=== PATIENT | female | born 1960 | race Caucasian/White ===

== ENCOUNTER → 2021-11-28 15:38 | Outpatient (REF) | payer MEDICAID, SELFPAY ==
--- NOTE | 2021-11-28 15:46 | CA_ITS ---
Transthoracic Echocardiogram Patient (Last, First, Middle): Keely Morin, Gender: Female Date of : 1960 Age: 61 Procedure Date: 11/28/2021 Procedure Type: Transthoracic Echocardiogram Location: [place] Height: 165.1 cm Weight: 68.04 kg BSA: 1.75 m2 Heart Rate: bpm BP: 118 / 70 mmHg Logistics Associate: Referring MD: Iris Kumar MD Symptoms: RAIN R06.00 Study Quality: Good ECG Rhythm: Sinus Conclusions: - The left ventricular systolic function is normal. The calculated ejection fraction is 68% by biplane method. - No obvious valvular pathology seen on this study. Findings Left Ventricle Normal left ventricular cavity size. There is mildly increased left ventricular wall thickness. The left ventricular systolic function is normal. The calculated ejection fraction is 68% by biplane method. There is no evidence of regional wall motion abnormalities. Diastolic function is normal for age. Right Ventricle Normal right ventricular cavity size and systolic function. Atria Both atria are normal in size. Aortic Valve There is a normal trileaflet aortic valve. There is no aortic valve stenosis. There is trace (trivial) aortic valve regurgitation. Mitral Valve The mitral valve appears normal. There is trace mitral valve regurgitation. There is no mitral valve stenosis. Pulmonic Valve The pulmonic valve is likely normal. Tricuspid Valve Normal tricuspid valve structure. There is trace tricuspid valve regurgitation. The pulmonary artery systolic pressure is normal. Great Vessels The aortic annulus, sinuses of valsalva, and asc aorta are normal in size. Venous The inferior vena cava is normal in size and collapses greater than 50% with inspiration. Pericardium/Pleural There is no evidence of pericardial effusion. Prior Study Comparison No prior study available for comparison. Recommendations, Care & Conclusions No obvious valvular pathology seen on this study. Measurements 2D Linear Measurements IVSd: 1.15 0.6-0.9/0.6-1.0 cm LVIDd: 4.19 3.9-5.3/4.2-5.9 cm LVIDd Index: 2.39 2.4-3.2/2.2-3.1 cm/m2 LVIDs: 2.38 2.0-3.6 cm LVPWd: 1.05 0.7-1.1 cm Ao Root: 3.20 2.1-3.5 cm LA Diam: 3.50 2.7-3.8/3.0-4.0 cm LAIDs Index: 2.00 1.5-2.3 cm/m2 LV Mass: 194.85 67-162/88-224 g LV Mass Index: 111.34 43-95/49-115 g/m2 LVOT Diam: 2.20 3.0+(-)1.3 cm 2D Systolic Function EF 4C: 63.70 >55% EF 2C: 69.80 >55% EF BiP: 67.70 >55% Mitral Valve MV Pk E: 0.81 MV PK A: 0.89 MV Decel Time: 218.00 E/A: 0.90 E'Lateral: 11.00 E'Medial: 7.18 E/E' Med: 11.30 E/E' Lat: 7.40 PHT: 64.00 MVA PHT: 3.44 Decel [place]: 3.73 Aortic Valve AoV Pk Benjamin: 1.38 AoV Mn Benjamin: 0.81 AoV VTI: 0.27 AoV Pk Grad: 8.00 Aov Mn Grad: 3.00 JOSE Cont.VTI: 3.52 LVOT LVOT Pk Benjamin: 1.11 LVOT Mn Benjamin: 0.62 LVOT VTI: 0.25 LVOT Pk Grad: 5.00 LVOT Mn Grad: 2.00 LVOT Diam: 2.20 LVOT Area: 3.80 Diastolic Function MV Pk E: 0.81 MV Pk A: 0.89 E/A: 0.90 E'Medial: 7.18 E/E' Med: 11.30 E' Laterial: 11.00 E/E' Lat: 7.40 Right Ventricle TAPSE (mm): 20.00 TVS' Benjamin: 14.00 Tricuspid Valve TR Pk Benjamin: 2.35 TR Pk Grad: 22.00 RA Press: 3.00 RVSP: 25.00 Great Vessels Aorta Ao Root-2D: 3.20 2.0-3.7 cm Ao Asc: 2.90 2.1-3.4 cm Pulmonary Valve PV Pk Benjamin: 1.08 Peak PV Grad: 5.00 Updated in Other Vendor System with Status of Final Evaristo Turpin MD electronically signed on 11/29/2021 11:54:31 AM with status of Final
== END ==
LOC: HO.CARD 15:38
PROVIDERS: Visit Provider Family Medicine
DX: R06.00 Dyspnea, unspecified (principal)
CPT/HCPCS: 93306